=== PATIENT | male | born 1945 | race Caucasian/White ===

== ENCOUNTER 2019-08-31 11:35 | Emergency (ER) | payer MEDICARE, BC ==
[2019-08-31 11:50] VITALS: BP 136/71; PULSE 82
--- NOTE | 2019-08-31 12:43 | EDM.PDOC ---
ED HPI GENERAL MEDICAL PROBLEM - General Chief Complaint: Respiratory Problem Stated Complaint: SHORTNESS OF BREATH Time Seen by Provider: 08/31/19 12:27 Source of Information: Reports: Patient History Limitations: Reports: No Limitations - History of Present Illness INITIAL COMMENTS - FREE TEXT/NARRATIVE: Patient is a 74-year-old gentleman who presents to the emergency department this afternoon with a complaint of cough and shortness of breath. Patient has a history of lung cancer with a right lower lobe lobectomy and multiple biopsies. Patient is scheduled for biopsy in [place] tomorrow. Patient contacted the on-call service because he had symptoms and they recommended to present to emergency department for evaluation. Patient states that shortness of breath is of chronic nature, however. Cough has been persistent recently. Patient also states that he has yellow sputum. His had upper respiratory infection recently but has since resolved. Patient denies fever, chest pain, out of country travel, nausea, vomiting, or blood in sputum. Onset: Gradual Duration: Day(s): Quality: Reports: Other (No chest pain) Severity: Mild Improves with: Reports: None Worsens with: Reports: None Context: Reports: Sick Contact ( just got over upper respiratory symptoms recently.) Associated Symptoms: Reports: Cough, cough w sputum, Shortness of Breath - Related Data Allergies Allergy/AdvReac Type Severity Reaction Status Date / Time Penicillins Allergy Swelling Verified 08/31/19 11:50 Home Meds: Home Meds Albuterol [Ventolin HFA] 2 puff INH Q4H PRN 10/27/14 [History] Fluticasone/Salmeterol [Advair 100-50] 1 puff INH BID 10/27/14 [History] Simvastatin 30 mg PO DAILY 10/27/14 [History] amLODIPine Besylate [Amlodipine Besylate] 2.5 mg PO DAILY 10/27/14 [History] Benazepril [Lotensin] 20 mg PO DAILY 10/29/14 [History] Multivitamin [Men's Multi-Vitamin] 1 tab PO DAILY 10/29/14 [History] Ascorbate Calcium [Vitamin C] 500 mg PO DAILY 08/31/19 [History] Ferrous Sulfate [Iron] 325 mg PO DAILY 08/31/19 [History] Tiotropium [Spiriva HandiHaler] 1 cap INH BID 08/31/19 [History] Past Medical History Cardiovascular History: Reports: High Cholesterol Respiratory History: Reports: COPD, SOB Gastrointestinal History: Reports: None Genitourinary History: Reports: BPH Hematologic History: Reports: Iron Deficiency Oncologic (Cancer) History: Reports: Lung - Past Surgical History Head Surgeries/Procedures: Reports: None Cardiovascular Surgical History: Reports: None Respiratory Surgical History: Reports: Lung Biopsies, Thoracotomy, Other (See Below) Other Respiratory Surgeries/Procedures: Right lower lobectomy 2009 GI Surgical History: Reports: None Oncologic Surgical History: Reports: Lobectomy ED ROS GENERAL - Review of Systems Review Of Systems: ROS reveals no pertinent complaints other than HPI. Constitutional: Reports: No Symptoms. Denies: Fever, Diaphoresis HEENT: Reports: No Symptoms Respiratory: Reports: Shortness of Breath, Cough, Sputum (Yellow) Cardiovascular: Reports: No Symptoms. Denies: Chest Pain Endocrine: Reports: No Symptoms GI/Abdominal: Reports: No Symptoms : Reports: No Symptoms Musculoskeletal: Reports: No Symptoms Skin: Reports: No Symptoms Neurological: Reports: No Symptoms Psychiatric: Reports: No Symptoms Hematologic/Lymphatic: Reports: No Symptoms Immunologic: Reports: No Symptoms ED EXAM, GENERAL - Physical Exam Exam: See Below Exam Limited By: No Limitations General Appearance: Alert, WD/WN, No Apparent Distress Nose: Normal Inspection, Normal Mucosa, No Blood Throat/Mouth: Normal Inspection, Normal Oropharynx, No Airway Compromise Head: Atraumatic, Normocephalic Neck: Normal Inspection Respiratory/Chest: No Respiratory Distress, Lungs Clear, Decreased Breath Sounds (Right base) Cardiovascular: Regular Rate, Rhythm, No Murmur GI/Abdominal: Normal Bowel Sounds, Soft, Non-Tender Extremities: Normal Inspection, No Pedal Edema Neurological: Alert, Oriented, Normal Cognition Psychiatric: Normal Affect, Normal Mood Skin Exam: Warm, Dry, Intact, Normal Color, No Rash Course - Vital Signs Last Recorded V/S: Last Vital Signs Temp 98.6 F 08/31/19 11:46 Pulse 82 08/31/19 11:46 Resp 24 H 08/31/19 11:46 BP 136/71 08/31/19 11:46 Pulse Ox 92 L 08/31/19 11:46 - Orders/Labs/Meds Orders: Active Orders 24 hr Category Date Time Status Chest 2V [CR] Stat Exams 08/31/19 12:05 Ordered INFLUENZA A+B AG SCREEN [RM] Stat Lab 08/31/19 12:05 Received - Radiology Interpretation Free Text/Narrative:: Chest x-ray shows no acute cardiopulmonary process - Re-Assessments/Exams Free Text/Narrative Re-Assessment/Exam: 08/31/19 12:46 Patient afebrile, nontoxic appearing, chest x-ray, no acute cardiopulmonary process noted. Patient will follow-up as scheduled in [place] tomorrow with pulmonology. Departure - Departure Time of Disposition: 12:47 Disposition: Home, Self-Care 01 Condition: Good Clinical Impression: Cough in adult, Shortness of breath - Discharge Information Instructions: Shortness of Breath, Adult, [id number], Cough, Adult, Easy-to- Read Referrals: Kris Ramirez, [employer] [facility] [Primary Care Provider] - Additional Instructions: Follow-up at scheduled tomorrow for doctor's appointment in [place]. Return to emergency department sooner if symptoms continue or worsen. - My Orders Last 24 Hours: My Active Orders 08/31/19 12:05 Chest 2V [CR] Stat INFLUENZA A+B AG SCREEN [RM] Stat - Assessment/Plan Last 24 Hours: My Active Orders 08/31/19 12:05 Chest 2V [CR] Stat INFLUENZA A+B AG SCREEN [RM] Stat Assessment:: Cough Plan: Follow-up with PCP
--- NOTE | 2019-08-31 12:45 | CR ---
[id number] RAD/RAD Chest PA And Lateral EXAM: FRONTAL AND LATERAL CHEST INDICATION: Cough and shortness of breath. COMPARISON: Chest CT October 16, 2016. DISCUSSION: Stable resection changes within the right lung with associated pleural and parenchymal scarring. An irregular nodular opacity in the right lung apex is similar to the prior CT study. No acute infiltrates are identified. Mild hyperinflation of the left lung suggests underlying chronic obstructive pulmonary disease. IMPRESSION: 1. No acute findings. Ian De Jesus MD 08/31/19 1243 Thank you for allowing us to participate in the care of your patient.
== END 2019-08-31 12:52 | disposition home or self-care (01) ==
LOC: KA.ED 11:35
DX: R05 Cough (principal); R06.02 Shortness of breath; J44.9 Chronic obstructive pulmonary disease, unspecified; E61.1 Iron deficiency; E78.00 Pure hypercholesterolemia, unspecified; Z79.51 Long term (current) use of inhaled steroids; Z79.899 Other long term (current) drug therapy; Z88.0 Allergy status to penicillin
CPT/HCPCS: 71046; 87804; 99283-25

== ENCOUNTER 2023-01-10 12:26 | Emergency (ER) | payer OTHER ==
[2023-01-10 13:06] VITALS: BP 143/80; PULSE 63
[2023-01-10 13:19] LABS: ANION GAP 10.3 mmol/L (5-15)
== END 2023-01-10 14:30 | disposition home or self-care (01) ==
LOC: KA.ED 12:26
DX: R33.9 Retention of urine, unspecified (principal); R31.0 Gross hematuria; E78.00 Pure hypercholesterolemia, unspecified; J44.9 Chronic obstructive pulmonary disease, unspecified; N40.0 Benign prostatic hyperplasia without lower urinary tract symptoms; Z88.0 Allergy status to penicillin; Z88.8 Allergy status to other drugs, medicaments and biological substances; Z79.899 Other long term (current) drug therapy
CPT/HCPCS: 36415; 51702; 80048; 81001; 85025; 87086; 99283; 99284

== ENCOUNTER 2023-01-13 10:02 | Emergency (ER) | payer OTHER ==
[2023-01-13 10:37] VITALS: BP 131/65; PULSE 83
== END 2023-01-13 10:29 | disposition home or self-care (01) ==
LOC: KA.ED 10:02
DX: R33.9 Retention of urine, unspecified (principal); E78.00 Pure hypercholesterolemia, unspecified; J44.9 Chronic obstructive pulmonary disease, unspecified; Z88.0 Allergy status to penicillin; Z88.8 Allergy status to other drugs, medicaments and biological substances; Z79.82 Long term (current) use of aspirin; Z79.899 Other long term (current) drug therapy
CPT/HCPCS: 99283; 99283-25

== ENCOUNTER 2024-12-08 10:35 | Inpatient (IN) | payer MEDICARE, OTHER ==
[2024-12-08] MEDS ORDERED: Sodium Chloride 0.9% 10 ML Syringe FLUSH PRN (11:01)
[2024-12-08 11:06] LABS: BASOPHILS ABSOLUTE AUTO 0.03 10^3/uL (0.00-0.10); BASOPHILS PERCENT AUTO 0.3 % (0.0-1.0); HEMATOCRIT 37.4 % (40.0-52.0); HEMOGLOBIN 12.1 g/dL (13.0-17.0); IMMATURE GRAN ABSOLUTE AUTO 0.02 10^3/uL (0.00-0.04); IMMATURE GRAN PERCENT AUTO 0.2 % (0.0-0.4); LYMPHOCYTES ABSOLUTE AUTO 0.83 10^3/uL (1.00-4.00); LYMPHOCYTES PERCENT AUTO 8.4 % (20.0-40.0); MEAN CORPUSCULAR HEMOGLOBIN 29.4 pg (27.0-31.0); MEAN CORPUSCULAR HGB CONC 32.4 g/dL (32.0-36.0); MEAN PLATELET VOLUME 9.1 fL (7.4-10.4); MONOCYTES PERCENT AUTO 9.1 % (2.0-8.0); NEUTROPHILS ABSOLUTE AUTO 8.11 10^3/uL (2.50-7.00); PLATELET COUNT,PLT 209 10^3/uL (150-400); RED BLOOD CELL COUNT 4.11 10^6/uL (4.50-6.00); RED CELL DISTRIBUTION WIDTH 13.4 % (11.5-14.5); WHITE BLOOD CELL COUNT,WBC 9.89 10^3/uL (5.00-10.00)
[2024-12-08 11:20] LABS: LACTIC ACID 0.9 mmol/L (0.4-2.0)
[2024-12-08 11:27] LABS: ALBUMIN 3.21 g/dL (3.40-5.00); ANION GAP 14.4 mmol/L (5-15); BILIRUBIN TOTAL 0.5 mg/dL (0.2-1.0); CALCIUM 8.5 mg/dL (8.7-10.3); CARBON DIOXIDE,CO2 27.6 mmol/L (21.0-32.0); CREATININE 1.2 mg/dL (0.51-1.17); EST CRCL DRUG DOSING (CG) 45.04 mL/min; PROTEIN TOTAL,TP 7.3 g/dL (6.4-8.2)
[2024-12-08] MEDS: Sodium Chloride 0.9% 1,000 ML IV ONE (11:44)
[2024-12-08] MEDS ORDERED: VANCOmycin 1 GM/200 ML 1 GM in Premix Bag 1 BAG IV ONE (13:00)
[2024-12-08] MEDS: VANCOmycin 1.25 GM/250 ML 1.25 GM in Premix Bag 1 BAG IV ONE (14:11)
[2024-12-08] MEDS: Sodium Chloride 0.9% 250 ML IV SCH (14:15)
[2024-12-08] MEDS ORDERED: Ondansetron 4 MG/2 ML SDV IV PRN (14:39)
[2024-12-08] MEDS ORDERED: Acetaminophen 325 MG Tab PO PRN (14:39)
[2024-12-08] MEDS: Azithromycin 500 MG in Sodium Chloride 0.9% 250 ML IV SCH (17:23)
[2024-12-08] MEDS: cefTRIAXone 2 GM Vial IVPUSH SCH (17:23)
[2024-12-08] MEDS: guaiFENesin 600 MG Tab.ER PO SCH (21:03)
[2024-12-08] MEDS: rOPINIRole 0.25 MG Tab PO SCH (21:03)
[2024-12-08] MEDS: traZODone 50 MG Tab PO SCH (21:03)
[2024-12-08] MEDS: Dorzolamide 2% Ophth Soln 10 ML Bottle EYEBOTH SCH (21:04)
[2024-12-08] MEDS: Latanoprost 0.005% Ophth Soln 2.5 ML Bottle EYEBOTH SCH (21:04)
[2024-12-08] MEDS: Oseltamivir 75 MG Cap PO ONE (21:04)
[2024-12-09] MEDS: VANCOmycin 750 MG/150 ML 750 MG in Premix Bag 1 BAG IV SCH (01:35)
[2024-12-09 07:25] LABS: BASOPHILS ABSOLUTE AUTO 0.02 10^3/uL (0.00-0.10); BASOPHILS PERCENT AUTO 0.2 % (0.0-1.0); HEMATOCRIT 36.5 % (40.0-52.0); HEMOGLOBIN 11.7 g/dL (13.0-17.0); IMMATURE GRAN ABSOLUTE AUTO 0.02 10^3/uL (0.00-0.04); IMMATURE GRAN PERCENT AUTO 0.2 % (0.0-0.4); LYMPHOCYTES ABSOLUTE AUTO 1.08 10^3/uL (1.00-4.00); LYMPHOCYTES PERCENT AUTO 10.5 % (20.0-40.0); MEAN CORPUSCULAR HEMOGLOBIN 29.8 pg (27.0-31.0); MEAN CORPUSCULAR HGB CONC 32.1 g/dL (32.0-36.0); MEAN CORPUSCULAR VOLUME 93.1 fL (82.0-92.0); MONOCYTES ABSOLUTE AUTO 0.99 10^3/uL (0.10-0.80); MONOCYTES PERCENT AUTO 9.6 % (2.0-8.0); NEUTROPHILS ABSOLUTE AUTO 8.16 10^3/uL (2.50-7.00); NEUTROPHILS PERCENT AUTO 79.5 % (50.0-70.0); PLATELET COUNT,PLT 203 10^3/uL (150-400); RED BLOOD CELL COUNT 3.92 10^6/uL (4.50-6.00); RED CELL DISTRIBUTION WIDTH 14.3 % (11.5-14.5); WHITE BLOOD CELL COUNT,WBC 10.27 10^3/uL (5.00-10.00)
[2024-12-09 07:40] LABS: CALCIUM 8.4 mg/dL (8.7-10.3); CARBON DIOXIDE,CO2 28.9 mmol/L (21.0-32.0); CREATININE 1.13 mg/dL (0.51-1.17); EST CRCL DRUG DOSING (CG) 47.83 mL/min; POTASSIUM,K 3.9 mmol/L (3.5-5.1)
[2024-12-09] MEDS: Enoxaparin 40 MG/0.4 ML Syringe SUBCUT SCH (08:25)
[2024-12-09] MEDS: atorvaSTATin 10 MG Tab PO SCH (08:26)
[2024-12-09] MEDS: Oseltamivir 30 MG Cap PO SCH (08:28)
[2024-12-09] MEDS: Aspirin 81 MG Tab.EC PO SCH (08:28)
[2024-12-09] MEDS: Tamsulosin 0.4 MG Cap.ER PO SCH (08:28)
[2024-12-09] MEDS: amLODIPine 2.5 MG Tab PO SCH (08:34)
[2024-12-09] MEDS: Lisinopril 20 MG Tab PO SCH (08:34)
[2024-12-09] MEDS ORDERED: atorvaSTATin 10 MG Tab PO SCH (09:00)
[2024-12-09] MEDS: Tiotropium BR/Olodaterol HCL 4 GM Inhalation Spray 2.5mcg/1 dose; 10 doses INH SCH (09:52)
[2024-12-10] MEDS: Albuterol/Ipratropium 3.0-0.5 MG/3 ML Neb Soln NEB PRN (02:55)
[2024-12-10] MEDS: Furosemide 40 MG/4 ML VIAL ONE (11:53)
[2024-12-10] MEDS: methylPREDNISolone Sodium Succinate 40 MG/1 ML SDV ONE (11:53)
[2024-12-10] MEDS: Furosemide 40 MG/4 ML VIAL IVPUSH ONE (11:54)
[2024-12-10] MEDS: methylPREDNISolone Sodium Succinate 40 MG/1 ML SDV IVPUSH SCH (11:54)
[2024-12-11 07:14] LABS: ALBUMIN 2.5 g/dL (3.40-5.00); ANION GAP 10.5 mmol/L (5-15); BILIRUBIN TOTAL 0.2 mg/dL (0.2-1.0); CALCIUM 8.3 mg/dL (8.7-10.3); CARBON DIOXIDE,CO2 32.2 mmol/L (21.0-32.0); CREATININE 1.04 mg/dL (0.51-1.17); EST CRCL DRUG DOSING (CG) 51.97 mL/min; POTASSIUM,K 4.7 mmol/L (3.5-5.1); PROTEIN TOTAL,TP 6.3 g/dL (6.4-8.2)
[2024-12-11 07:16] LABS: BASOPHILS ABSOLUTE AUTO 0.01 10^3/uL (0.00-0.10); BASOPHILS PERCENT AUTO 0.2 % (0.0-1.0); HEMATOCRIT 29.1 % (40.0-52.0); IMMATURE GRAN ABSOLUTE AUTO 0.03 10^3/uL (0.00-0.04); IMMATURE GRAN PERCENT AUTO 0.6 % (0.0-0.4); LYMPHOCYTES ABSOLUTE AUTO 0.95 10^3/uL (1.00-4.00); LYMPHOCYTES PERCENT AUTO 17.9 % (20.0-40.0); MEAN CORPUSCULAR HEMOGLOBIN 29.7 pg (27.0-31.0); MEAN PLATELET VOLUME 9.2 fL (7.4-10.4); MONOCYTES PERCENT AUTO 9.4 % (2.0-8.0); NEUTROPHILS ABSOLUTE AUTO 3.82 10^3/uL (2.50-7.00); NEUTROPHILS PERCENT AUTO 71.9 % (50.0-70.0); PLATELET COUNT,PLT 200 10^3/uL (150-400); RED BLOOD CELL COUNT 3.13 10^6/uL (4.50-6.00); RED CELL DISTRIBUTION WIDTH 13.4 % (11.5-14.5); WHITE BLOOD CELL COUNT,WBC 5.31 10^3/uL (5.00-10.00)
[2024-12-11 07:32] LABS: HEMOGLOBIN 9.3 g/dL (13.0-17.0)
[2024-12-11] MEDS: Menthol Lozenge PO PRN (11:47)
[2024-12-11 15:38] VITALS: BP 145/68; PULSE 91
== END 2024-12-11 15:28 | disposition home or self-care (01) | DRG 193 ==
LOC: KA.ED 10:35 → KA.MS 12:30
PROVIDERS: ADMIT Hospitalist; ATTEND Hospitalist
DX: J18.9 Pneumonia, unspecified organism (principal); J10.1 Influenza due to other identified influenza virus with other respiratory manifestations; J96.01 Acute respiratory failure with hypoxia; C34.91 Malignant neoplasm of unspecified part of right bronchus or lung; C34.92 Malignant neoplasm of unspecified part of left bronchus or lung; C83.10 Mantle cell lymphoma, unspecified site; Z88.0 Allergy status to penicillin; J44.0 Chronic obstructive pulmonary disease with (acute) lower respiratory infection; Z79.82 Long term (current) use of aspirin; Z79.899 Other long term (current) drug therapy; H26.9 Unspecified cataract; I25.10 Atherosclerotic heart disease of native coronary artery without angina pectoris; I10 Essential (primary) hypertension; D36.9 Benign neoplasm, unspecified site; E78.00 Pure hypercholesterolemia, unspecified; M06.9 Rheumatoid arthritis, unspecified; D64.9 Anemia, unspecified; E61.1 Iron deficiency; J43.1 Panlobular emphysema; D07.5 Carcinoma in situ of prostate; Z90.2 Acquired absence of lung [part of]; Z98.890 Other specified postprocedural states; Z99.81 Dependence on supplemental oxygen; Z88.8 Allergy status to other drugs, medicaments and biological substances; Z85.118 Personal history of other malignant neoplasm of bronchus and lung
CPT/HCPCS: 36415; 71045; 80048; 80053; 80202; 83605; 85025; 87040; 87428-QW; 93005; 93010; 94640; 96360; 99223-GT; 99232-GT; 99233-GT; 99239-GT; 99284; 99285-25; A9270-GY; J0456; J0696; J1650; J1940; J2919; J3372; J7030; J7620-GY; Q3014